=== PATIENT | female | born 1955 | race Caucasian/White ===

== ENCOUNTER 2018-04-26 19:19 | Emergency (ER) | payer MEDICAID ==
[~2018-04-26] VITALS: Ht 165.1 cm; Wt 63.5 kg
[2018-04-26 20:17] VITALS: BP 153/91
[2018-04-26] MEDS ORDERED: HYDROCODONE/APAP 5/325MG 1 EACH TABLET ONE (21:07)
[2018-04-26] MEDS ORDERED: DIAZEPAM 10 MG TABLET ONE (21:07)
[2018-04-26] MEDS ORDERED: predniSONE 20 MG TABLET ONE (21:08)
[2018-04-26] MEDS ORDERED: DIAZEPAM 10 MG TABLET PO ONE (21:30)
[2018-04-26] MEDS ORDERED: HYDROCODONE/APAP 5/325MG 1 EACH TABLET PO ONE (21:30)
[2018-04-26] MEDS ORDERED: predniSONE 20 MG TABLET PO ONE (21:30)
== END 2018-04-26 21:15 | disposition home or self-care (01) ==
LOC: ER 19:20
DX: M54.41 Lumbago with sciatica, right side (principal); Z90.710 Acquired absence of both cervix and uterus; Z88.6 Allergy status to analgesic agent; Z60.2 Problems related to living alone
CPT/HCPCS: A4606; Z7610

== ENCOUNTER 2018-06-23 12:22 | Emergency (ER) | payer SELFPAY ==
[~2018-06-23] VITALS: Ht 167.6 cm; Wt 65.3 kg
--- NOTE | 2018-06-23 12:33 | NUR ---
BIB SELF, FROM HOME, [facility] THIS MORNING, C/O PAIN ON THE R LEG, -KO. ALERT AND ORIENTED X 4, VERBALLY RESPONSIVE AND ABLE TO MAKE NEEDS KNOWN. ON ROOM AIR, BREATHING EVENLY AND UNLABORED. KEPT COMFORTABLE, WILL CONTINUE TO MONITOR ACCORDINGLY. AWAITING FOR MD FOR EVAL.
[2018-06-23] MEDS ORDERED: ONDANSETRON 4 MG TAB.RAPDIS PO ONE (13:00)
[2018-06-23] MEDS ORDERED: HYDROMORPHONE 1 MG/1 ML DISP.SYRIN IM ONE (13:00)
[2018-06-23] MEDS ORDERED: HYDROMORPHONE INJ 2 MG/ML DISP.SYRIN ONE (13:32)
[2018-06-23] MEDS ORDERED: ONDANSETRON 4 MG TAB.RAPDIS ONE (13:33)
[2018-06-23 14:01] VITALS: BP 135/84
--- NOTE | 2018-06-23 14:02 | NUR ---
Patient discharged to home in stable condition. Written and verbal after care instructions given. Patient verbalizes understanding of instruction.
== END 2018-06-23 14:02 | disposition home or self-care (01) ==
LOC: ER 12:25
DX: S86.812A Strain of other muscle(s) and tendon(s) at lower leg level, left leg, initial encounter (principal); M54.41 Lumbago with sciatica, right side; Z90.710 Acquired absence of both cervix and uterus; Z88.6 Allergy status to analgesic agent; Z60.2 Problems related to living alone; W01.0XXA Fall on same level from slipping, tripping and stumbling without subsequent striking against object, initial encounter; Y93.89 Activity, other specified; Y92.89 Other specified places as the place of occurrence of the external cause; Y99.8 Other external cause status
CPT/HCPCS: 73564-TC; J1170; Q0162

== ENCOUNTER 2018-07-17 17:52 | Emergency (ER) | payer SELFPAY ==
[~2018-07-17] VITALS: Ht 167.6 cm; Wt 63.5 kg
[2018-07-17 18:24] VITALS: BP 144/96
[2018-07-17] MEDS ORDERED: HYDROMORPHONE 1 MG/1 ML DISP.SYRIN IM ONE (19:00)
[2018-07-17] MEDS ORDERED: ONDANSETRON 4 MG TAB.RAPDIS SL ONE (19:00)
[2018-07-17] MEDS ORDERED: HYDROMORPHONE INJ 0.5 MG/0.5 ML SYRINGE ONE (19:09)
[2018-07-17] MEDS ORDERED: ONDANSETRON 4 MG TAB.RAPDIS ONE (19:09)
== END 2018-07-17 19:42 | disposition home or self-care (01) ==
LOC: ER 17:55
DX: M54.40 Lumbago with sciatica, unspecified side (principal); Z90.710 Acquired absence of both cervix and uterus; Z88.6 Allergy status to analgesic agent; Z60.2 Problems related to living alone
CPT/HCPCS: 96372; 99283; A4606; Q0162